=== PATIENT | male | born 1990 | race Caucasian/White ===

== ENCOUNTER 2016-06-09 08:32 | Emergency (ER) | payer OTHER ==
[2016-06-09] MEDS ORDERED: CEPHALEXIN 250 MG CAPSULE PO STA (08:49)
[2016-06-09] MEDS ORDERED: BUPIVACAINE 0.5%-EPI 1:200000 PF 10 ML VIAL SUBQ STA (08:49)
[2016-06-09] MEDS ORDERED: BUPIVACAINE 0.5%-EPI 1:200000 PF 30 ML VIAL SUBQ STA (08:52)
[2016-06-09] MEDS ORDERED: BUPIVACAINE 0.5%-EPI 1:200000 PF 30 ML VIAL ONE (08:53)
[2016-06-09] MEDS ORDERED: CEPHALEXIN 250 MG CAPSULE PO ONE (09:11)
[2016-06-09] MEDS ORDERED: BUPIVACAINE 0.5% PF 30 ML VIAL ONE (10:57)
== END 2016-06-09 11:45 | disposition home or self-care (01) ==
DX: S61.412A Laceration without foreign body of left hand, initial encounter (principal); W25.XXXA Contact with sharp glass, initial encounter; Y92.69 Other specified industrial and construction area as the place of occurrence of the external cause; Y99.0 Civilian activity done for income or pay; M06.9 Rheumatoid arthritis, unspecified
CPT/HCPCS: 12002; 73120; 99283; A9270

== ENCOUNTER 2018-02-27 06:36 | Emergency (ER) | payer OTHER ==
[2018-02-27 06:48] VITALS: BP 152/79
--- NOTE | 2018-02-27 07:10 | XRAY Report ---
Reason: PUNCHED A TRUCK DOOR. PAIN/SWELLING R HAND. Procedure Date: 02/27/2018 Accession Number: [id number] / [id number] Procedure: XR - Hand 3 View RT CPT Code: FULL RESULT: EXAM: RIGHT HAND RADIOGRAPHY EXAM DATE: 02/27/2018 07:01 AM. CLINICAL HISTORY: PUNCHED A TRUCK DOOR. PAIN/SWELLING R HAND. COMPARISON: HAND 2 VIEW LT 06/09/2016 9:14 AM. TECHNIQUE: 3 views. FINDINGS: Bones: Normal. No fractures or bone lesions. Joints: Normal. No subluxations. Soft Tissues: Normal. No soft tissue swelling. IMPRESSION: Normal hand radiography. [facility]
--- NOTE | 2018-02-27 07:20 | ED Physician Documentation ---
PD HPI UPPER EXT INJURY - Stated complaint Stated Complaint: RT HAND INJ - Chief complaint Chief Complaint: Ext Problem - History obtained from History obtained from: Patient - History of Present Illness Location: Right, Hand Type of injury: Blunt / blow Where injury occurred: Home Timing - onset: Enter time (0600), Today Timing - duration: Minutes Timing - details: Abrupt onset, Still present Improved by: Rest, Ice, Immobilization Worsened by: Moving, Palpating Associated symptoms: Swelling. No: Weakness, Numbness, Tingling Contributing factors: No: Anticoagulated Similar symptoms before: Diagnosis (hand contusion) Recently seen: Not recently seen - Additonal information Additional information: 28-year-old male was getting ready to go into work today he became quite frustrated with something and punched the door to his truck. He has pain over the second knuckle and over the fourth knuckle the most of the pain is over the fourth knuckle he is able to use his hand without difficulty and has no pain in his wrist. Review of Systems Constitutional: denies: Fever, Chills Eyes: denies: Decreased vision Ears: denies: Ear pain Nose: denies: Congestion Throat: denies: Sore throat Respiratory: denies: Cough GI: denies: Vomiting PD PAST MEDICAL HISTORY - Past Medical History Past Medical History: Yes Cardiovascular: Other Respiratory: None Neuro: None Endocrine/Autoimmune: None GI: None : None HEENT: None Psych: None Musculoskeletal: Rheumatoid arthritis Derm: None - Past Surgical History Past Surgical History: Yes General: Other Ortho: Arthroscopic surgery Cardiovascular: Other - Present Medications Home Medications: Ambulatory Orders Medication Instructions Recorded Confirmed Cephalexin [Keflex] 500 mg PO Q6H #28 capsule 06/09/16 - Allergies Allergies/Adverse Reactions: Allergies Allergy/AdvReac Type Severity Reaction Status Date / Time No Known Drug Allergies Allergy Verified 02/27/18 06:47 - Social History Does the pt smoke?: No Smoking Status: Never smoker Does the pt drink ETOH?: Yes Does the pt have substance abuse?: No - Immunizations Immunizations are current?: Yes - POLST Patient has POLST: No PD ED PE NORMAL - Vitals Vital signs reviewed: Yes (hypertensive ) - General General: Alert and oriented X 3, No acute distress, Well developed/nourished - HEENT HEENT: Atraumatic, PERRL, EOMI - Respiratory Respiratory: No respiratory distress - Derm Derm: Normal color, Warm and dry, No rash - Extremities Extremities: Other (There is an abrasion over the distal right 2nd metacarpal and over the 4th distal metacarpal. The 4th is most tender and there is no deformity to suggest fracture. distal n/v is intact. ) - Neuro Neuro: Alert and oriented X 3, reconstructive dentist 2-12 intact, No motor deficit, No sensory deficit, Normal speech Eye Opening: Spontaneous Motor: Obeys Commands Verbal: Oriented GCS Score: 15 - Psych Psych: Normal mood, Normal affect Results - Vitals Vitals: Vital Signs - 24 hr 02/27/18 06:45 Temperature 36.9 C Heart Rate 80 Respiratory 17 Rate Blood Pressure 152/79 H O2 Saturation 100 Oxygen O2 Source Room air - Rads (name of study) hand R Radiology: Prelim report reviewed (Impression: Normal hand radiography.), EMP read indepedently, See rad report Procedures - Splint (location) right hand Splint applied by: Tech Type of splint: Fiberglass, Ulnar gutter Other: Patient tolerated well, No complications, Neurovascular intact, Good alignment PD MEDICAL DECISION MAKING - ED course Complexity details: considered differential, d/w patient ED course: 28-year-old male with a contusion to the right hand does not have evidence of fracture on x-ray examination he is placed into an ulnar gutter splint given a note for work for 3 days. Departure - Departure Disposition: 01 Home, Self Care Clinical Impression: Contusion of right hand Qualifiers: Encounter type: initial encounter Qualified Code(s): S60.221A - Contusion of right hand, initial encounter Condition: Stable Instructions: ED Contusion Hand Follow-Up: [facility] [Provider Group] Forms: Activity restrictions
== END 2018-02-27 07:51 | disposition home or self-care (01) ==
LOC: ED 06:36
DX: S60.221A Contusion of right hand, initial encounter (principal); S60.511A Abrasion of right hand, initial encounter; W22.8XXA Striking against or struck by other objects, initial encounter; Y93.89 Activity, other specified; Y92.009 Unspecified place in unspecified non-institutional (private) residence as the place of occurrence of the external cause
CPT/HCPCS: 29125; 99282; 99283

== ENCOUNTER 2020-02-20 18:47 | Outpatient (CLI) | payer BC | END 2020-02-20 18:48 | disposition home or self-care (01) | LOC: COV 18:47 | PROVIDERS: ATTEND Family Medicine | DX: Z20.822 Contact with and (suspected) exposure to COVID-19 (principal) ==